=== PATIENT | female | born 1975 | race Two or more races ===

== ENCOUNTER 2017-02-21 19:12 | Emergency (ER) | payer OTHER ==
[~2017-02-21] VITALS: Ht 149.9 cm; Wt 36.3 kg
[~2017-02-21 19:12] MED LIST: [UNRECOGNIZED DRUG - REMARK]
[2017-02-21 19:59] VITALS: BP 100/70
== END 2017-02-21 20:59 | disposition home or self-care (01) ==
LOC: ER 19:13
DX: H66.91 Otitis media, unspecified, right ear (principal)
CPT/HCPCS: A4606; Z7502; Z7610